=== PATIENT | male | born 1945 | race African-American/Black ===

== ENCOUNTER 2018-03-09 12:17 | Inpatient (IN) | payer OTHER, BC ==
[~2018-03-09] VITALS: Ht 172.7 cm; Wt 85.4 kg
--- NOTE | ~2018-03-09 | EKG ---
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 <ELECTRONICALLY SIGNED> By: Isidro Saucedo MD 03/10/18 0902 1235 1235 Isidro Saucedo MD /EPI
--- NOTE | ~2018-03-09 | 2DMMODE ---
[facility] [address] [place] [address] 2 D/M-MODE ECHOCARDIOGRAM Name: AUBREY WANG Room #: 210-P [facility] IN ..#: [id number] Admission: 03/09/18 Attend Phys: Santo Meyers, Discharge: Date of : 43 Date of Service: 03/10/18 1008 Report #: [id number] THIS REPORT FOR: //name// APPROVED REPORT Study performed: 03/10/2018 09:08:06 EXAM: Comprehensive 2D, Doppler, and color-flow Echocardiogram Patient Location: In-Patient Room #: 210 Status: routine BSA: 1.99 HR: 95 bpm BP: 147/97 mmHg Other Information Study Quality: Adequate Indications Diabetes Syncope 2D Dimensions RVDd: 27.11 mm IVSd: 14.38 (7-11mm) LVOT Diam: 20.72 (18-24mm) LVDd: 32.22 mm PWd: 14.01 (7-11mm) Ascending Ao: 32.45 (22-36mm) LVDs: 21.05 (25-40mm) Aortic Root: 33.21 mm IVC: 12.00 mm Volumes Left Atrial Volume (Systole) Single Plane 4CH: 47.46 mL Single Plane 2CH: 36.00 mL LA ESV Index: 24.00 mL/m2 Aortic Valve AoV Peak Vincent.: 1.36 m/s AO Peak Gr.: 7.44 mmHg LVOT Max P.54 mmHg LVOT Max V: 1.18 m/s SHANNON Vmax: 2.91 cm2 Mitral Valve E/A Ratio: 0.5 MV Decel. Time: 231.03 ms MV E Max Vincent.: 0.69 m/s [facility] [address] [place] [address] 2 D/M-MODE ECHOCARDIOGRAM Name: AUBREY WANG Room #: 210-P [facility] IN .R.#: [id number] Admission: 03/09/18 Attend Phys: Santo Meyers, Discharge: Date of : 43 Date of Service: 03/10/18 1008 Report #: [id number] A Vincent.: 1.39 m/s MV PHT: 67.00 ms IVRT: 152.25 ms Pulmonary Valve PV Peak Vincent.: 1.24 m/s PV Peak Gr.: 6.20 mmHg Pulmonary Vein P Vein S: 0.64 m/s P Vein A: 0.26 m/s P Vein D: 0.36 m/s P Vein A Dur.: 103.8 msec P Vein S/D Ratio: 1.78 Tricuspid Valve RAP Estimate: 5.00 mmHg Left Ventricle The left ventricle is normal size. There is normal LV segmental wall motion. Mild to moderate concentric left ventricular hypertrophy. Left ventricular systolic function is hyperdynamic. LVEF is 65-70%. Mild diastolic dysfunction is present (impaired relaxation pattern). Right Ventricle The right ventricle is normal size. The right ventricular systolic function is normal. Atria The left atrium size is normal. The right atrium size is normal. Aortic Valve The aortic valve is normal in structure. No aortic regurgitation is present. There is no aortic valvular stenosis. Mitral Valve Moderate mitral annular calcification. There is no mitral valve regurgitation noted. No evidence of mitral valve stenosis. Tricuspid Valve The tricuspid valve is normal in structure. There is no tricuspid valve regurgitation noted. Unable to assess PA pressure. Pulmonic Valve The pulmonary valve is normal in structure. Trace to mild pulmonic regurgitation. [facility] [address] [place] [address] 2 D/M-MODE ECHOCARDIOGRAM Name: FELIPEAUBREY Room #: 210-P [facility] IN M.R.#: [id number] Admission: 03/09/18 Attend Phys: Santo Meyers, Discharge: Date of : 43 Date of Service: 03/10/18 1008 Report #: [id number] Great Vessels The aortic root is normal in size. IVC is normal in size and collapses >50% with inspiration. Pericardium There is no pericardial effusion. <Conclusion> Left ventricular systolic function is hyperdynamic. There is normal LV segmental wall motion. LVEF is 65-70%. Mild diastolic dysfunction The aortic valve is normal in structure. No aortic regurgitation or stenosis Moderate mitral annular calcification. No mitral valve regurgitation Pulmonary artery pressure could not be reliably ascertained There is no pericardial effusion. <ELECTRONICALLY SIGNED> By: Eldon Aaron MD, FACC 03/10/181007 07 07 Eldon Aaron MD, FACC /INF
--- NOTE | ~2018-03-09 | HC ---
[facility] [place] [address] CONSULTATION Name: AUBREY WANG Room #: 210-P [facility] IN M.R.#: [id number] Admission: 03/09/18 Attend Phys: Santo Meyers MD Discharge: Date of : 43 Report #: [id number] THIS REPORT FOR: //name// CC: [facility] physician/PCP Santo Meyers REASON FOR CONSULTATION: Near syncope. HISTORY OF PRESENT ILLNESS: The patient is a 73-year-old gentleman with a limited past history. He has not seen a doctor in probably 10-12 years. He was at his granddaughter's track meet, it was a hot day in the 90s, he had not eaten anything all day most of the day and bent over to filler picker a lawn chair. In the process, became very lightheaded and near syncopal. He said he blacked out, although he was able to hear those around him. There was no period where he was not aware. He denies palpitations. He "came to" in about 2-3 minutes and felt fine afterwards. He was seen in the Emergency Department where his blood sugar was elevated. He has been diagnosed with diabetes with a hemoglobin A1c of 9.6%. Troponins have been normal. Echocardiogram, which I have reviewed is normal. He is active without limitation. He denies chest pain, pressure or ischemic type symptoms. No heart failure symptoms. ALLERGIES: No palpitations. PAST MEDICAL HISTORY: Medical records have been reviewed and includes history of recently diagnosed diabetes, remote herniorrhaphy, mild hypertension. 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 FAMILY HISTORY: Unremarkable for premature coronary disease. REVIEW OF SYSTEMS: All systems negative except as that noted above. PHYSICAL EXAMINATION: GENERAL: A pleasant gentleman in no distress. VITAL SIGNS: Blood pressure is 140/90, heart rate of 100 and regular. He is afebrile. HEENT: There are neither xanthelasma, subcutaneous xanthomata, oral mucosal or digital cyanosis or kyphoscoliosis present. CHEST: Clear to auscultation and percussion. CARDIAC: Regular rate and rhythm with normal S1, S2. Jugular venous pressure is not elevated. ABDOMEN: Soft and nontender. EXTREMITIES: Without cyanosis, clubbing or edema. Radial pulses are 2+. NEUROLOGIC: He is alert with a nonfocal exam. LABORATORY DATA: Sodium is 137, potassium 3.8, creatinine 1.0. Glucose 242, [address] [address] CONSULTATION Name: AUBREY WANG Room #: 210-P [facility] IN [facility].#: [id number] Admission: 03/09/18 Attend Phys: Santo Meyers MD Discharge: Date of : 43 Report #: [id number] LDL 120. Total cholesterol 184. White count 9.5, hemoglobin 15, hematocrit 43, platelet count 240. Normal thyroid function studies. Chest x-ray normal. Head CT normal. EKG sinus rhythm with LVH with repolarization abnormality, poor R-wave progression. IMPRESSION: 1. Near syncope, likely related to orthostatic hypotension, possible vagal component. 2. Remote history of syncope in the setting of dehydration. 3. Diabetes. 4. Dyslipidemia. 5. Prior tobacco dependency. RECOMMENDATIONS: 1. A primary rhythm abnormality is not suspected. 2. Addition of atorvastatin, low dose daily aspirin and JULI inhibitor. 3. Outpatient stress study. Thank you for asking me to participate in his care. <ELECTRONICALLY SIGNED> By: Eldon Aaron MD, FACC 03/11/18 0956 1221 0126 Eldon Aaron MD, FACC /nt
[2018-03-09 12:19] VITALS: BP 127/93
[2018-03-09 12:49] LABS: ABSOLUTE NEUTROPHILS 10.7 thou/uL (1.4-8.2); BASOPHILS 0.6 % (0.0-2.0); EOSINOPHILS 0.3 % (0.0-3.0); HEMATOCRIT 48.8 % (42.0-52.0); HEMOGLOBIN 17.1 gm/dL (14.0-18.0); LYMPHOCYTES 9.4 % (24.0-44.0); MCHC 35.1 g/dL (28.0-37.0); MCV 91.1 fL (80.0-100.0); MONOCYTES 8.8 % (1.0-8.0); PLATELET COUNT 290 thou/uL (150-400); POLYS 80.9 % (36.0-66.0); RBC 5.36 mil/uL (4.50-6.00); RDW 12.4 % (10.5-14.5); WBC 13.2 thou/uL (4.0-11.0)
[2018-03-09 13:09] LABS: ANION GAP 9 mmol/L (7-16); BUN 11 mg/dL (7-18); CALCIUM 9.8 mg/dL (8.5-10.1); CHLORIDE 100 mmol/L (98-107); CO2 27 mmol/L (21-32); CREATININE 1.3 mg/dL (0.7-1.3); GLUCOSE 355 mg/dL (74-106); POTASSIUM 3.7 mmol/L (3.5-5.1); SODIUM 136 mmol/L (136-145)
[2018-03-09 13:14] LABS: ALBUMIN 3.7 g/dL (3.4-5.0); SGOT 20 U/L (15-37); SGPT 32 U/L (30-65); TOTAL BILIRUBIN 1.2 mg/dL (<0.1-1.0); TOTAL PROTEIN 8.6 g/dL (6.4-8.2); TROPONIN-I <0.06 ng/mL (<0.06)
[2018-03-09 16:39] LABS: URINE BILIRUBIN NEGATIVE (Negative); URINE BLOOD NEGATIVE (Negative); URINE CLARITY CLEAR; URINE COLOR YELLOW; URINE GLUCOSE-RANDOM* 3+ (Negative); URINE KETONES TRACE (Negative); URINE LEUKOCYTES-REFLEX NEGATIVE (Negative); URINE NITRITE-REFLEX NEGATIVE (Negative); URINE PROTEIN (DIPSTICK) NEGATIVE (Negative)
[2018-03-09 17:52] VITALS: BP 148/92
[2018-03-09 18:40] VITALS: BP 148/92
[2018-03-09 19:26] LABS: FOLIC ACID 8.3 ng/mL (8.6-58.9); TSH 3.059 uIU/mL (0.358-3.740)
[2018-03-09 21:51] VITALS: BP 117/79
[2018-03-10] VITALS (8 sets, daily range): BP systolic 123–159; BP diastolic 76–102
[2018-03-10 00:06] LABS: GLYCOHEMOGLOBIN (HGB A1C) 9.6 % (4.8-5.6)
[2018-03-10 05:40] LABS: ABSOLUTE NEUTROPHILS 7.2 thou/uL (1.4-8.2); BASOPHILS 0.3 % (0.0-2.0); EOSINOPHILS 0.6 % (0.0-3.0); HEMATOCRIT 43.3 % (42.0-52.0); HEMOGLOBIN 15.7 gm/dL (14.0-18.0); LYMPHOCYTES 12.3 % (24.0-44.0); MCH 32.9 pg (26.0-34.0); MCHC 36.4 g/dL (28.0-37.0); MCV 90.4 fL (80.0-100.0); MONOCYTES 10.8 % (1.0-8.0); PLATELET COUNT 240 thou/uL (150-400); RBC 4.79 mil/uL (4.50-6.00); RDW 12.5 % (10.5-14.5); WBC 9.5 thou/uL (4.0-11.0)
[2018-03-10 06:01] LABS: ANION GAP 9 mmol/L (7-16); BUN 10 mg/dL (7-18); CALCIUM 9.2 mg/dL (8.5-10.1); CHLORIDE 103 mmol/L (98-107); CHOLESTEROL 184 mg/dL (<200); CO2 25 mmol/L (21-32); GLUCOSE 242 mg/dL (74-106); HDL CHOLESTEROL 45 mg/dL (>40); LDL CHOLESTEROL 120 mg/dL (<100); MAGNESIUM 1.8 mg/dL (1.8-2.4); POTASSIUM 3.8 mmol/L (3.5-5.1); SERUM ASSESSMENT Clear; SODIUM 137 mmol/L (136-145); TC:HDL 4.1 Ratio (Not establshd); TRIGLYCERIDE 98 mg/dL (<150); VLDL 20 mg/dL (<40)
[2018-03-11 03:34] VITALS: BP 130/93
[2018-03-11 07:21] VITALS: BP 139/71; BP 150/87
[2018-03-11 07:22] VITALS: BP 118/81
[2018-03-11 09:30] LABS: HEMATOCRIT 44.7 % (42.0-52.0); HEMOGLOBIN 15.9 gm/dL (14.0-18.0); MCH 32.5 pg (26.0-34.0); MCHC 35.6 g/dL (28.0-37.0); MCV 91.3 fL (80.0-100.0); RBC 4.9 mil/uL (4.50-6.00); RDW 12.4 % (10.5-14.5); WBC 10.4 thou/uL (4.0-11.0)
[2018-03-11 09:40] LABS: CALCIUM 9.2 mg/dL (8.5-10.1); CREATININE 0.9 mg/dL (0.7-1.3); MAGNESIUM 1.9 mg/dL (1.8-2.4); POTASSIUM 3.8 mmol/L (3.5-5.1)
[2018-03-11 13:31] VITALS: BP 137/78
[2018-03-11 15:13] VITALS: BP 151/85
[2018-03-11 19:02] VITALS: BP 128/84
[2018-03-12 03:05] VITALS: BP 134/80
[2018-03-12 04:10] LABS: HEMATOCRIT 40.8 % (42.0-52.0); HEMOGLOBIN 14.8 gm/dL (14.0-18.0); MCH 32.5 pg (26.0-34.0); MCHC 36.1 g/dL (28.0-37.0); RBC 4.54 mil/uL (4.50-6.00); RDW 12.2 % (10.5-14.5); WBC 7.5 thou/uL (4.0-11.0)
[2018-03-12 04:23] LABS: CALCIUM 8.9 mg/dL (8.5-10.1); CREATININE 0.9 mg/dL (0.7-1.3); MAGNESIUM 1.8 mg/dL (1.8-2.4); POTASSIUM 3.4 mmol/L (3.5-5.1)
[2018-03-12 07:16] VITALS: BP 138/87
[2018-03-12 11:00] VITALS: BP 145/83
[2018-03-12 16:12] VITALS: BP 156/78
[2018-03-12 20:04] VITALS: BP 154/79
[2018-03-13 03:24] LABS: HEMATOCRIT 42.4 % (42.0-52.0); HEMOGLOBIN 14.6 gm/dL (14.0-18.0); MCH 31.7 pg (26.0-34.0); MCHC 34.5 g/dL (28.0-37.0); MCV 91.8 fL (80.0-100.0); RBC 4.62 mil/uL (4.50-6.00); RDW 12.4 % (10.5-14.5); WBC 8.4 thou/uL (4.0-11.0)
[2018-03-13 03:36] LABS: CALCIUM 8.9 mg/dL (8.5-10.1); CREATININE 0.9 mg/dL (0.7-1.3); MAGNESIUM 1.7 mg/dL (1.8-2.4); POTASSIUM 3.5 mmol/L (3.5-5.1)
[2018-03-13 04:21] VITALS: BP 116/75
[2018-03-13 07:05] VITALS: BP 138/78
[2018-03-13 11:15] VITALS: BP 133/81
[2018-03-13 15:14] VITALS: BP 134/72
[2018-03-13 20:22] VITALS: BP 121/82
[2018-03-14 03:16] LABS: HEMATOCRIT 40.9 % (42.0-52.0); HEMOGLOBIN 14.4 gm/dL (14.0-18.0); MCH 31.9 pg (26.0-34.0); MCHC 35.3 g/dL (28.0-37.0); MCV 90.4 fL (80.0-100.0); RBC 4.53 mil/uL (4.50-6.00); RDW 12.1 % (10.5-14.5); WBC 10.1 thou/uL (4.0-11.0)
[2018-03-14 03:29] LABS: CREATININE 0.9 mg/dL (0.7-1.3); MAGNESIUM 1.9 mg/dL (1.8-2.4); POTASSIUM 3.1 mmol/L (3.5-5.1)
[2018-03-14 05:31] VITALS: BP 116/43
[2018-03-14 07:19] VITALS: BP 135/86
[2018-03-14] MEDS ORDERED: LISINOPRIL5 MG PO (12:07)
[2018-03-14] MEDS ORDERED: ATORVASTATIN CA40 MG PO (12:07)
[2018-03-14] MEDS ORDERED: B-12500 MCG PO (12:09)
[2018-03-14] MEDS ORDERED: METFORMIN HCL500 MG PO (12:11)
[2018-03-14 12:15] VITALS: BP 112/60
[2018-03-14] MEDS ORDERED: 1ST TIER UNILE1 EAC1 SUBQ (12:16)
[2018-03-14] MEDS ORDERED: TEST STRIPS1 EACH SUBQ (12:16)
[2018-03-14 13:17] VITALS: BP 112/60
== END 2018-03-14 15:15 | disposition home or self-care (01) | DRG 640 ==
LOC: ER 12:17 → EROBS 16:40 → 2N 16:40 → EROBS 19:29 → 2N 20:35 → ENTRNSPT 03-14 14:21 → EDTRNSPTSTS 03-14 14:46 → 2N 03-14 15:15
PROVIDERS: Internal Medicine; Nurse Practitioner; Nurse Practitioner Family
DX: E86.0 Dehydration (principal); E43 Unspecified severe protein-calorie malnutrition; K56.7 Ileus, unspecified; I95.1 Orthostatic hypotension; I10 Essential (primary) hypertension; E78.5 Hyperlipidemia, unspecified; R00.0 Tachycardia, unspecified; E11.9 Type 2 diabetes mellitus without complications; Z87.442 Personal history of urinary calculi; Z87.891 Personal history of nicotine dependence; Z82.49 Family history of ischemic heart disease and other diseases of the circulatory system; Z80.9 Family history of malignant neoplasm, unspecified
CPT/HCPCS: 10081

== ENCOUNTER 2018-09-11 11:29 | Emergency (ER) | payer OTHER, BC ==
[~2018-09-11] VITALS: Ht 172.7 cm; Wt 85.3 kg
[~2018-09-11 11:29] MED LIST: 1ST TIER UNILE1 EAC1 SUBQ; ATORVASTATIN CA40 MG PO; B-12500 MCG PO; LISINOPRIL5 MG PO; METFORMIN HCL500 MG PO; TEST STRIPS1 EACH SUBQ
[2018-09-11] MEDS ORDERED: TRAMADOL 50 MG50 MG PO (12:18)
[2018-09-11 12:46] VITALS: BP 134/85
== END 2018-09-11 12:47 | disposition home or self-care (01) ==
LOC: ER 11:29
DX: M54.42 Lumbago with sciatica, left side (principal); Z87.442 Personal history of urinary calculi